=== PATIENT | female | born 1980 | race American Indian/Alaskan Native ===

== ENCOUNTER 2019-10-29 22:34 | Emergency (ER) | payer BC ==
[~2019-10-29] VITALS: Ht 165.1 cm; Wt 57.6 kg
[2019-10-29 22:41] VITALS: Ht 165.1 cm; Wt 57.6 kg
[2019-10-30 00:27] VITALS: BP 102/46
== END 2019-10-30 00:27 | disposition home or self-care (01) ==
LOC: ED 22:34
DX: R07.89 Other chest pain (principal)
CPT/HCPCS: J1885; Q0092